=== PATIENT | female | born 1935 | race Caucasian/White ===

== ENCOUNTER 2021-06-03 11:38 | Outpatient (CLI) | payer MEDICARE, OTHER | END 2021-06-03 11:39 | disposition home or self-care (01) | LOC: CSHMAMMO 11:38 | PROVIDERS: ATTEND Internal Medicine | DX: Z12.31 Encounter for screening mammogram for malignant neoplasm of breast (principal) | CPT/HCPCS: 77063; 77067 ==

== ENCOUNTER 2022-02-14 12:56 | Outpatient (CLI) | payer MEDICARE, OTHER | END 2022-02-14 12:57 | disposition home or self-care (01) | LOC: CSHWCC 12:56 | PROVIDERS: ATTEND Nurse Practitioner Family | DX: I87.332 Chronic venous hypertension (idiopathic) with ulcer and inflammation of left lower extremity (principal); L97.222 Non-pressure chronic ulcer of left calf with fat layer exposed; L97.822 Non-pressure chronic ulcer of other part of left lower leg with fat layer exposed; R60.0 Localized edema | CPT/HCPCS: 97139; G0463; 99205 ==

== ENCOUNTER 2022-05-01 13:57 | Outpatient (CLI) | payer MEDICARE, OTHER | END 2022-05-01 13:58 | disposition home or self-care (01) | LOC: CSHWCC 13:57 | PROVIDERS: ATTEND Nurse Practitioner Family | DX: I87.332 Chronic venous hypertension (idiopathic) with ulcer and inflammation of left lower extremity (principal); L97.822 Non-pressure chronic ulcer of other part of left lower leg with fat layer exposed; R60.0 Localized edema | CPT/HCPCS: 11042; 29581 ==

== ENCOUNTER 2022-05-15 12:49 | Outpatient (CLI) | payer MEDICARE, OTHER | END 2022-05-15 12:50 | disposition home or self-care (01) | LOC: CSHWCC 12:49 | PROVIDERS: ATTEND Nurse Practitioner Family | DX: I87.332 Chronic venous hypertension (idiopathic) with ulcer and inflammation of left lower extremity (principal); L97.822 Non-pressure chronic ulcer of other part of left lower leg with fat layer exposed; R60.0 Localized edema | CPT/HCPCS: 11042; 29581 ==

== ENCOUNTER 2022-05-30 09:07 | Outpatient (CLI) | payer MEDICARE, OTHER | END 2022-05-30 09:08 | disposition home or self-care (01) | LOC: CSHWCC 09:07 | PROVIDERS: ATTEND Nurse Practitioner Family | DX: I87.332 Chronic venous hypertension (idiopathic) with ulcer and inflammation of left lower extremity (principal); L97.822 Non-pressure chronic ulcer of other part of left lower leg with fat layer exposed; R60.0 Localized edema | CPT/HCPCS: 29581 ==

== ENCOUNTER 2022-06-05 11:34 | Outpatient (CLI) | payer MEDICARE, OTHER | END 2022-06-05 11:35 | disposition home or self-care (01) | LOC: CSHMAMMO 11:34 | PROVIDERS: ATTEND Internal Medicine | DX: Z12.31 Encounter for screening mammogram for malignant neoplasm of breast (principal) | CPT/HCPCS: 77063; 77067 ==

== ENCOUNTER 2022-06-13 10:36 | Outpatient (CLI) | payer MEDICARE, OTHER | END 2022-06-13 10:37 | disposition home or self-care (01) | LOC: CSHWCC 10:36 | PROVIDERS: ATTEND Preventive Medicine Undersea and Hyperbaric Medicine | DX: I87.332 Chronic venous hypertension (idiopathic) with ulcer and inflammation of left lower extremity (principal); L97.822 Non-pressure chronic ulcer of other part of left lower leg with fat layer exposed; R60.0 Localized edema | CPT/HCPCS: 29581 ==

== ENCOUNTER 2022-07-04 10:51 | Outpatient (CLI) | payer MEDICARE, OTHER | END 2022-07-04 10:52 | disposition home or self-care (01) | LOC: CSHWCC 10:51 | PROVIDERS: ATTEND Preventive Medicine Undersea and Hyperbaric Medicine | DX: I87.332 Chronic venous hypertension (idiopathic) with ulcer and inflammation of left lower extremity (principal); L97.822 Non-pressure chronic ulcer of other part of left lower leg with fat layer exposed; R60.0 Localized edema | CPT/HCPCS: 29581 ==

== ENCOUNTER 2022-07-25 10:57 | Outpatient (CLI) | payer MEDICARE, OTHER | END 2022-07-25 10:58 | disposition home or self-care (01) | LOC: CSHWCC 10:57 | PROVIDERS: ATTEND Preventive Medicine Undersea and Hyperbaric Medicine | DX: I87.332 Chronic venous hypertension (idiopathic) with ulcer and inflammation of left lower extremity (principal); L97.822 Non-pressure chronic ulcer of other part of left lower leg with fat layer exposed; R60.0 Localized edema | CPT/HCPCS: 99213; G0463 ==

== ENCOUNTER 2022-09-27 23:13 | Emergency (ER) | payer OTHER, MEDICARE ==
[2022-09-27] MEDS ORDERED: Lidocaine 1% (PF) 30 ML VIAL ONE (23:41)
[2022-09-28] MEDS ORDERED: Acetaminophen 500 MG TAB ONE (00:23)
[2022-09-28 01:05] LABS: #Eosinphils 0.1 10x3/uL (0.0-0.5); #Monocytes 0.6 10x3/uL (0.0-1.1); %Basophils 0.3 % (0.0-2.0); %Eosinophils 0.8 % (0.0-6.0); %Lymphocytes 5.9 % (18.0-47.0); %Monocytes 5.1 % (0.0-10.0); %Neutrophils 86.3 % (40.0-75.0); Hemoglobin 10.7 g/dL (12.0-15.5); Mean Corpuscular HGB CONC 33.4 g/dL (32.0-36.0); Mean Corpuscular Hemoglobin 32.8 pg (27.0-33.0); Mean Corpuscular Volume 98.2 fl (81.6-98.3); Mean Platelet Volume 9.1 fl (7.4-10.4); Platelet Count 303 10x3/uL (150-450); RBC Distribution Width 13.7 % (11.5-14.5); Red Blood Cell (RBC) Count 3.26 10x6/uL (3.90-5.03); White Blood Cell (WBC) Count 11.5 10x3/uL (3.5-10.5)
[2022-09-28 01:14] LABS: ALT (SGPT) 27 U/L (8-55); AST (SGOT) 39 U/L (5-34); Alkaline Phosphatase 102 U/L (40-110); Anion Gap 19 mmol/L (10-20); BUN (Urea Nitrogen) 30 mg/dL (9.8-20.1); Bilirubin, Total 0.4 mg/dL (0.2-1.2); Calc. Creatinine Clearance 0 mL/min (70-130); Calcium 9.6 mg/dL (7.8-10.44); Carbon Dioxide 21 mmol/L (23-31); Chloride 103 mmol/L (98-107); Estimated GFR 21; Globulin 3.1 g/dL (2.4-3.5); Glucose 261 mg/dL (83-110); INR-International Normal Ratio 0.9; PTT 24.9 sec (22.0-33.0); Potassium 3.9 mmol/L (3.5-5.1); Protein, Total 7.1 g/dL (5.8-8.1); Prothrombin Time 9.8 sec (9.5-12.1); Sodium 139 mmol/L (136-145)
== END 2022-09-28 03:11 | disposition short-term general hospital (02) ==
LOC: CSHERS 23:13
DX: S06.5X0A Traumatic subdural hemorrhage without loss of consciousness, initial encounter (principal); S11.81XA Laceration without foreign body of other specified part of neck, initial encounter; E11.9 Type 2 diabetes mellitus without complications; I10 Essential (primary) hypertension; E78.00 Pure hypercholesterolemia, unspecified; W01.190A Fall on same level from slipping, tripping and stumbling with subsequent striking against furniture, initial encounter; Z79.01 Long term (current) use of anticoagulants; Z79.84 Long term (current) use of oral hypoglycemic drugs; Z79.899 Other long term (current) drug therapy
CPT/HCPCS: 12011; 70450; 70486; 72125; 80053; 85025; 85610; 85730; 93005; J2001

== ENCOUNTER 2022-10-27 09:00 | Outpatient (CLI) | payer MEDICARE, OTHER | END 2022-10-27 09:01 | disposition home or self-care (01) | LOC: CSHWCC 09:00 | PROVIDERS: ATTEND Nurse Practitioner Family | DX: S01.00XD Unspecified open wound of scalp, subsequent encounter (principal) | CPT/HCPCS: 97139; G0463; 99213 ==

== ENCOUNTER 2022-11-20 10:02 | Outpatient (CLI) | payer MEDICARE, OTHER | END 2022-11-20 10:03 | disposition home or self-care (01) | LOC: CSHWCC 10:02 | PROVIDERS: ATTEND Nurse Practitioner Family | DX: R51.9 Headache, unspecified (principal) | CPT/HCPCS: 99213; G0463 ==

== ENCOUNTER 2022-11-23 13:06 | Outpatient (CLI) | payer MEDICARE, OTHER | END 2022-11-23 13:07 | disposition home or self-care (01) | LOC: CSHCT 13:06 | PROVIDERS: ATTEND Surgery | DX: S06.5XAD Traumatic subdural hemorrhage with loss of consciousness status unknown, subsequent encounter (principal) | CPT/HCPCS: 70450 ==

== ENCOUNTER 2022-12-11 13:23 | Outpatient (CLI) | payer MEDICARE, OTHER | END 2022-12-11 13:24 | disposition home or self-care (01) | LOC: CSHWCC 13:23 | PROVIDERS: ATTEND Nurse Practitioner Family | DX: S01.00XD Unspecified open wound of scalp, subsequent encounter (principal) | CPT/HCPCS: 99212; G0463 ==

== ENCOUNTER 2022-12-19 13:39 | Outpatient (CLI) | payer MEDICARE, OTHER | END 2022-12-19 13:40 | disposition home or self-care (01) | LOC: CSHCT 13:39 | PROVIDERS: ATTEND Surgery | DX: I62.03 Nontraumatic chronic subdural hemorrhage (principal) | CPT/HCPCS: 70450 ==

== ENCOUNTER 2023-01-16 14:35 | Outpatient (CLI) | payer MEDICARE, OTHER | END 2023-01-16 14:36 | disposition home or self-care (01) | LOC: CSHWCC 14:35 | PROVIDERS: ATTEND Nurse Practitioner Family | DX: S01.00XD Unspecified open wound of scalp, subsequent encounter (principal) ==

== ENCOUNTER 2023-02-12 11:28 | Outpatient (CLI) | payer MEDICARE, OTHER | END 2023-02-12 11:29 | disposition home or self-care (01) | LOC: CSHWCC 11:28 | PROVIDERS: ATTEND Nurse Practitioner Family | DX: S01.00XD Unspecified open wound of scalp, subsequent encounter (principal) ==

== ENCOUNTER 2023-04-11 10:04 | Outpatient (CLI) | payer MEDICARE, OTHER | END 2023-04-11 10:05 | disposition home or self-care (01) | LOC: CSHWCC 10:04 | PROVIDERS: ATTEND Nurse Practitioner Family | DX: S01.00XD Unspecified open wound of scalp, subsequent encounter (principal) | CPT/HCPCS: 99212; G0463 ==